=== PATIENT | male | born 1975 | race Caucasian/White ===

== ENCOUNTER 2021-03-17 11:41 | Emergency (ER) | payer OTHER ==
[~2021-03-17] VITALS: Ht 182.9 cm; Wt 96.9 kg
--- NOTE | 2021-03-17 11:55 | NUR ---
PT AMBULATED TO ROOM FROM TRIAGE. PT STATED THAT HE SLIPPED AND FELL OFF WORK TRUCK THIS MORNING, HURTING HIS RIGHT ARM. PT CO PAIN IN RIGHT SHOULDER AND ELBOW PAIN WITH A BURNING SENSATION IN HIS RIGHT HAND. PT DENIES ANY OTHER INJURY.
[2021-03-17 13:00] VITALS: BP 137/69
--- NOTE | 2021-03-17 13:00 | NUR ---
PT RESTING GURNEY COMFORTABLY. CALL LIGHT WITHIN REACH
--- NOTE | 2021-03-17 14:34 | NUR ---
DISCHARGE INSTRUCTIONS REVIEWED WITH PT. ALL QUESTIONS ANSWERED AT THIS TIME.
== END 2021-03-17 14:36 | disposition home or self-care (01) ==
LOC: ED 12:27
DX: S56.117A Strain of flexor muscle, fascia and tendon of right little finger at forearm level, initial encounter (principal); I10 Essential (primary) hypertension; J45.909 Unspecified asthma, uncomplicated; K21.9 Gastro-esophageal reflux disease without esophagitis; W18.30XA Fall on same level, unspecified, initial encounter; Y93.89 Activity, other specified; Y92.009 Unspecified place in unspecified non-institutional (private) residence as the place of occurrence of the external cause; Y99.8 Other external cause status
CPT/HCPCS: 29125; 99283